=== PATIENT | female | born 1945 | race Caucasian/White ===

== ENCOUNTER 2019-06-09 15:39 | Inpatient (IN) | payer MEDICARE, SELFPAY ==
[2019-06-15] VITALS (10 sets, daily range): BP systolic 98–128; BP diastolic 49–72; PULSE 54–88; RESP 16–26; TEMP 36.5–36.8; O2SAT 90–97
[2019-06-15] MEDS: acetaminophen 325 mg Tablet 650 MG PO ×2 (02:00→23:16)
[2019-06-15 04:59] LABS: Add RBC Morph No
[2019-06-15 05:05] LABS: Basophils % 0.2 %; Eosinophils % 0.5 %; Hematocrit 29.7 % (37.0-47.0); Hemoglobin 8.2 g/dL (11.5-15.3); Lymphocytes # 0.5 10^3/uL (0.8-4.8); Lymphocytes % 5.9 %; Mean Corpuscular HGB Conc 27.6 g/dL (30.0-36.0); Mean Corpuscular Hemoglobin 20.6 pg (28.0-34.0); Mean Corpuscular Volume 74.6 fL (81-99); Mean Platelet Volume 9.3 fL (7.4-10.4); Monocytes # 0.6 10^3/uL (0.2-0.9); Monocytes % 6.8 %; Neutrophils # 7.1 10^3/uL (1.8-7.7); Nucleated Red Blood Cells # 0.1 /100WBC; Nucleated Red Blood Cells % 0.6 %; Platelet Count 239 10^3/cmm (130-400); Red Blood Count 3.98 10^6/uL (4.1-5.3); Red Cell Distribution Width 19.1 % (12.1-15.1); White Blood Count 8.2 10^3/uL (4.0-10.0)
[2019-06-15 05:33] LABS: Alanine Aminotransferase 164 U/L (0-33); Albumin Level 4.1 g/dL (3.5-5.2); Alkaline Phosphatase 224 IU/L (35-105); Anion Gap 14.3 (5-19); Aspartate Amino Transferase 72 U/L (0-32); Blood Urea Nitrogen 67 mg/dL (8-23); Calcium 9.2 mg/Dl (8.8-10.2); Carbon Dioxide 34 mmol/L (22-29); Chloride 88 mmol/L (98-107); Globulin 1.7 g/dL (1.3-4.6); Glucose 197 mg/dL (74-106); Potassium 3.3 mmol/L (3.5-5.1); Sodium 133 mmol/L (136-145); Total Bilirubin 1.2 mg/dL (0.15-1.2); Total Protein 5.8 g/dL (6.6-8.7)
--- NOTE | 2019-06-15 05:45 | PC.PHAR ---
RENAL DOSING FOR LEVAQUIN 750MG CHANGED FROM Q24H TO Q28H DUE TO CRCL OF 29.22
[2019-06-15] MEDS: pantoprazole DR 40 mg Tablet PO (09:24)
[2019-06-15] MEDS: dilTIAZem ER (24HR) 180 mg Capsule 360 MG PO (09:24)
[2019-06-15] MEDS: amiodarone 200 mg Tablet PO (09:24)
[2019-06-15] MEDS: metoprolol tartrate 25 mg Tablet PO (09:24)
[2019-06-15] MEDS: bumetanide 1 mg Tablet PO ×2 (09:24→18:11)
[2019-06-15] MEDS: aspirin 81 mg EC Tablet PO (09:25)
[2019-06-15] MEDS: apixaban 5 mg Tablet PO ×2 (09:25→18:11)
[2019-06-15] MEDS: sennosides 8.6 mg Tablet PO (09:25)
[2019-06-15 12:31] LABS: Glucose Point of Care 242 mg/dL (70-110)
--- NOTE | 2019-06-15 12:53 | PC.CHAP ---
Pastoral Care Encounter/Spiritual Assessment Type of Contact [] Declined tax evaluator visit [] Patient/Family/Request visit [] Outpatient visit [] Follow-up visit [] Physician referral [] Code/Alert [x] Routine visit [] Staff referral [] Actively dying [] Patient sleeping [] Family support [] [] Out of room [] Palliative care [] [] Receiving care in room [] Pre-surgical visit [] Trauma [x] Long length of stay [] ICU visit [] Other: Relational/Emotional Strength [x] Patient feels connected with others/family/visitors/staff [] Distress [] Loneliness/isolation [] Abandonment Spirituality of Patient [] Person of Radha [] Attends Lutheran of their Radha [x] Believes in Prayer [] Reads Bible or Jain materials [] There are Spiritual issues to be addressed 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 Interventions [x] Prayer [x] Active listening [x] Non-anxious presence [x] Spiritual/emotional support [] Crisis/trauma care [] Spiritual counseling [] Bereavement support [] Provided bereavement packet [] Provided Bible/devotional materials [] Provided toy/stuffed animal, coloring book to patient or family member [] Completed spiritual assessment [] Provided Communion [] Anointing/[place] [] Salvation [] Other: Impact on Illness or Injury [] Angry [] Fearful [] Anxious [] Often cries [] Exhaustion [] Unable to work [] Unable to attend jainism [] Unable to walk/stand [] Unable to read [] Unable to drive [] Unable to eat/drink [] Unable to sleep [] Unable to be with family [x] Other: daughters visit daily.. 6 day stay, now addressing feet level- feels progress is being made Summary Time spent with patient 10 minutes
[2019-06-15] MEDS: ondansetron 2 mg/ML SDV 2 mL 4 MG IVP (15:27)
[2019-06-15 17:34] LABS: Glucose Point of Care 200 mg/dL (70-110)
--- NOTE | 2019-06-15 18:07 | PM.PN ---
Subjective Subjective: Interval history: The mouth is feeling dry, getting some intermittent muscle cramps in her legs. Vitals/I&O/Wt Last Vital Signs Temp 97.7 F 06/15/19 17:26 Pulse 56 L 06/15/19 17:26 Resp 26 H 06/15/19 17:26 BP 105/72 06/15/19 17:26 Pulse Ox 91 06/15/19 17:26 06/15/19 06/15/19 06/15/19 06:59 14:59 22:59 Intake Total 120 / 120 Output Total 1150 / 1150 Balance -1030 / -1030 Weight last 48 hrs Weight 101.605 kg Physical Exam Const: COMMON NORMALS: no apparent distress HENMT: COMMON NORMALS: oropharynx normal Neck/C-Spine: GENERAL: Yes JVD Resp: COMMON NORMALS: normal respiratory effort and clear to auscultation bilaterally AUSCULTATION: clear to auscultation bilaterally Cardio: COMMON NORMALS: regular rhythm, S1 normal heart sound, S2 normal heart sound and no murmurs RHYTHM: regular rhythm HEART SOUNDS: S1 normal and S2 normal GI: COMMON NORMALS: normal to inspection, nondistended, normoactive bowel sounds, soft to palpation and non-tender PALPATION: Yes soft Extremity: COMMON NORMALS: no joint enlargement GENERAL: Yes edema (Bilateral edema, 3+) Skin: LESIONS: lesion noted (Large shallow ulcerations on posterior left calf) Data Labs: Other Labs: All Labs last 24 hrs except CBC/BMP 06/14/19 06/14/19 06/15/19 16:42 20:51 04:27 RBC 3.98 L MCV 74.6 L MCH 20.6 L MCHC 27.6 L RDW 19.1 H MPV 9.3 Neut % (Auto) 86.0 Lymph % (Auto) 5.9 [place] % (Auto) 6.8 Eos % (Auto) 0.5 Baso % (Auto) 0.2 Neut # (Auto) 7.1 Lymph # (Auto) 0.5 L [place] # (Auto) 0.6 Eos # (Auto) 0.0 Baso # (Auto) 0.0 Nucleated RBC % (a uto) 0.6 Nucleated RBCs # 0.1 POC Glucose 166 H 201 H Calcium Total Bilirubin AST ALT Alkaline Phosphata se Total Protein Albumin Globulin 06/15/19 06/15/19 06/15/19 04:27 11:49 17:26 RBC MCV MCH MCHC RDW MPV Neut % (Auto) Lymph % (Auto) [place] % (Auto) Eos % (Auto) Baso % (Auto) Neut # (Auto) Lymph # (Auto) [place] # (Auto) Eos # (Auto) Baso # (Auto) Nucleated RBC % (a uto) Nucleated RBCs # POC Glucose 242 200 Calcium 9.2 Total Bilirubin 1.2 AST 72 H ALT 164 H Alkaline Phosphata se 224 H Total Protein 5.8 L Albumin 4.1 Globulin 1.7 A&P Assessment and plan (1) Acute diastolic CHF (congestive heart failure): So far has been putting out urine with albumin and Bumex. Fluid restriction was decreased to 800 mL. Renal function today with some improvement. Tonight blood pressure is soft. We will give her 25 g of 25% albumin this evening and give an additional milligram of Bumex. Reduce metoprolol dose to 12.5 mg. Today complaining of some lower extremity cramps. Will check magnesium. Status: Acute Code(s): I50.31 - Acute diastolic (congestive) heart failure (2) Acute kidney injury superimposed on chronic kidney disease: Creatinine today is better. Repeat albumin tonight. Diuresis. Avoid hypotension. Status: Acute Code(s): N17.9 - Acute kidney failure, unspecified; N18.9 - Chronic kidney disease, unspecified (3) Atrial fibrillation with RVR: Resolved. She has been in sinus rhythm. Currently somewhat bradycardic in the high 50s. Will use metoprolol dose to 12.5 mg. Status: Acute Code(s): I48.91 - Unspecified atrial fibrillation (4) Pleural effusion, right: Has not been on Eliquis during this admission. Underwent thoracentesis with removal of 1100 of serous orange appearing fluid. Appears to be transudate of. Follow-up biochemistries. Continue management of congestive heart failure. With some chest pain after procedure. Possible degree of pneumonitis or reexpansion pulmonary edema. She still requiring 4 L of oxygen by nasal cannula. Continue diuresis as tolerating. Switched her antibiotic to Levaquin. Leukocytosis now resolved. Status: Acute Code(s): J90 - Pleural effusion, not elsewhere classified (5) Acute and chronic respiratory failure: Continue him on 4-5 L by nasal cannula. At home uses 2 L. Continue treatment of HF. Has underlying COPD, Patricio hypertension. Status: Acute Code(s): J96.20 - Acute and chronic respiratory failure, unspecified whether with hypoxia or hypercapnia (6) UTI (urinary tract infection): Continue Levaquin. Status: Acute Code(s): N39.0 - Urinary tract infection, site not specified (7) Constipation: Continue bowel regimen. Status: Acute Code(s): K59.00 - Constipation, unspecified Additional A&P Information Additional A&P Information: History of DVT and PE. Status post IVC filter placement which is due to be removed within the next couple months. Continue Eliquis. Attestations Medical Necessity Statement*: Continue admission for assessment and management of acute exacerbation of diastolic CHF, acute respiratory failure, with acute kidney injury, multiple comorbidities. 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
[2019-06-15] MEDS: metoprolol tartrate 25 mg Tablet 12.5 MG PO (18:11)
[2019-06-15 20:47] LABS: Glucose Point of Care 422 mg/dL (70-110)
[2019-06-15] MEDS: atorvastatin 40 mg Tablet 20 MG PO (21:31)
[2019-06-15] MEDS: budesonide 0.5 mg/2 mL Neb INHALATION (23:27)
[2019-06-15] MEDS: ipratropium-albuterol 3 mL Neb INHALATION (23:27)
[2019-06-16] VITALS (12 sets, daily range): BP systolic 93–128; BP diastolic 52–69; PULSE 56–82; RESP 16–31; TEMP 36.4–36.8; O2SAT 88–94
[2019-06-16] MEDS: ipratropium-albuterol 3 mL Neb INHALATION (03:11)
[2019-06-16 04:11] LABS: Basophils % 0.2 %; Eosinophils % 0.1 %; Hematocrit 29.4 % (37.0-47.0); Hemoglobin 8.2 g/dL (11.5-15.3); Lymphocytes # 0.5 10^3/uL (0.8-4.8); Lymphocytes % 5.3 %; Mean Corpuscular HGB Conc 27.9 g/dL (30.0-36.0); Mean Corpuscular Volume 71.9 fL (81-99); Mean Platelet Volume 9.6 fL (7.4-10.4); Monocytes # 0.9 10^3/uL (0.2-0.9); Monocytes % 10.3 %; Neutrophils # 7.1 10^3/uL (1.8-7.7); Neutrophils % 83.6 %; Nucleated Red Blood Cells # 0.1 /100WBC; Nucleated Red Blood Cells % 1.7 %; Platelet Count 259 10^3/cmm (130-400); Red Blood Count 4.09 10^6/uL (4.1-5.3); Red Cell Distribution Width 19.2 % (12.1-15.1); White Blood Count 8.5 10^3/uL (4.0-10.0)
[2019-06-16 04:22] LABS: Add RBC Morph No
[2019-06-16 04:32] LABS: Alanine Aminotransferase 137 U/L (0-33); Albumin Level 4.5 g/dL (3.5-5.2); Alkaline Phosphatase 294 IU/L (35-105); Anion Gap 16.7 (5-19); Aspartate Amino Transferase 71 U/L (0-32); Blood Urea Nitrogen 74 mg/dL (8-23); Calcium 9.4 mg/Dl (8.8-10.2); Carbon Dioxide 33 mmol/L (22-29); Chloride 87 mmol/L (98-107); Globulin 1.6 g/dL (1.3-4.6); Glucose 51 mg/dL (74-106); Potassium 3.7 mmol/L (3.5-5.1); Sodium 133 mmol/L (136-145); Total Bilirubin 1.6 mg/dL (0.15-1.2); Total Protein 6.1 g/dL (6.6-8.7)
[2019-06-16 07:30] LABS: Glucose Point of Care 80 mg/dL (70-110)
[2019-06-16] MEDS: budesonide 0.5 mg/2 mL Neb INHALATION ×2 (10:18→19:51)
[2019-06-16 11:22] LABS: Glucose Point of Care 176 mg/dL (70-110)
[2019-06-16] MEDS: apixaban 5 mg Tablet PO ×2 (12:20→18:37)
[2019-06-16] MEDS: aspirin 81 mg EC Tablet PO (12:20)
[2019-06-16] MEDS: metoprolol tartrate 25 mg Tablet 12.5 MG PO ×2 (12:20→18:37)
[2019-06-16] MEDS: bumetanide 1 mg Tablet PO (12:21)
[2019-06-16] MEDS: dilTIAZem ER (24HR) 180 mg Capsule 360 MG PO (12:21)
[2019-06-16] MEDS: pantoprazole DR 40 mg Tablet PO (12:21)
[2019-06-16] MEDS: levoFLOXacin 750 mg Tablet PO (12:22)
[2019-06-16] MEDS: amiodarone 200 mg Tablet PO (12:22)
[2019-06-16] MEDS: sennosides 8.6 mg Tablet PO (12:22)
[2019-06-16] MEDS: acetaminophen 325 mg Tablet 650 MG PO ×2 (12:27→22:03)
--- NOTE | 2019-06-16 13:05 | PC.SOCIAL ---
IMM Updated Page 2 of IMM updated and given to patient. Initialed, dated, and timed and placed back in chart.
[2019-06-16 13:45] LABS: Creatine Phosphokinase 16 U/L (26-192); Magnesium 2.3 mg/dL (1.7-2.3)
[2019-06-16 16:27] LABS: Glucose Point of Care 203 mg/dL (70-110)
--- NOTE | 2019-06-16 17:36 | PM.PN ---
Subjective Subjective: Interval history: Today she is feeling about the same. Having some muscle cramps overnight. Vitals/I&O/Wt Last Vital Signs Temp 97.6 F 06/16/19 15:44 Pulse 60 06/16/19 15:44 Resp 24 H 06/16/19 15:44 BP 93/52 06/16/19 15:44 Pulse Ox 91 06/16/19 15:44 06/16/19 06/16/19 06/16/19 06:59 14:59 22:59 Intake Total 240 / 440 240 / 240 Output Total 350 / 850 500 / 500 Balance -110 / -410 -260 / -260 Weight last 48 hrs Weight 110.677 kg Weight 101.605 kg Physical Exam Const: COMMON NORMALS: no apparent distress HENMT: COMMON NORMALS: oropharynx normal Neck/C-Spine: GENERAL: Yes JVD Resp: COMMON NORMALS: normal respiratory effort and clear to auscultation bilaterally AUSCULTATION: clear to auscultation bilaterally Cardio: COMMON NORMALS: regular rhythm, S1 normal heart sound, S2 normal heart sound and no murmurs RHYTHM: regular rhythm HEART SOUNDS: S1 normal and S2 normal GI: COMMON NORMALS: normal to inspection, nondistended, normoactive bowel sounds, soft to palpation and non-tender PALPATION: Yes soft Extremity: COMMON NORMALS: no joint enlargement GENERAL: Yes edema (Bilateral edema, 3+) Skin: LESIONS: lesion noted (Large shallow ulcerations on posterior left calf) OTHER: Small amount of weeping. A&P Assessment and plan (1) Acute diastolic CHF (congestive heart failure): Yesterday she has without less urine. Renal function worsened somewhat with creatinine up to 2.4. Blood pressure was good in the morning, this afternoon blood pressure soft. Will repeat 25 g of 25% albumin. Hold off on additional diuretics this evening. Requested cardiology consultation to assist with management of right heart failure in the setting of severe emphysema, likely severe pulmonary hypertension. Continue fluid restriction of 800 mL. Due to bradycardia, soft blood pressures metoprolol dose was decreased to 12.5 mg. Magnesium is normal. Status: Acute Code(s): I50.31 - Acute diastolic (congestive) heart failure (2) Acute kidney injury superimposed on chronic kidney disease: Hold off additional diuretic tonight. Repeat albumin. Reassess renal function. Status: Acute Code(s): N17.9 - Acute kidney failure, unspecified; N18.9 - Chronic kidney disease, unspecified (3) Atrial fibrillation with RVR: Resolved. She has been in sinus rhythm. Due to bradycardia on 06/15 metoprolol decreased to 12.5 mg. Status: Acute Code(s): I48.91 - Unspecified atrial fibrillation (4) Pleural effusion, right: Underwent thoracentesis with removal of 1100 of serous orange appearing fluid. Appears to be transudative. Follow-up biochemistries. Continue management of congestive heart failure. With some chest pain after procedure. Possible degree of pneumonitis or reexpansion pulmonary edema. She still requiring 4 L of oxygen by nasal cannula. Continue diuresis as tolerating. Levaquin. Today again with diminished lung sounds at right base. Will repeat chest x-ray. Status: Acute Code(s): J90 - Pleural effusion, not elsewhere classified (5) Acute and chronic respiratory failure: Continues on 4-5 L by nasal cannula. At home uses 2 L. Continue treatment of HF. Has underlying COPD, pulmonary hypertension. Status: Acute Code(s): J96.20 - Acute and chronic respiratory failure, unspecified whether with hypoxia or hypercapnia (6) UTI (urinary tract infection): Continue Levaquin. Status: Acute Code(s): N39.0 - Urinary tract infection, site not specified (7) Constipation: Continue bowel regimen. Status: Acute Code(s): K59.00 - Constipation, unspecified Additional A&P Information Additional A&P Information: Acute liver injury: Suspected secondary to a right heart failure. AST and ALT with mild improvement. There is some worsening of alkaline phosphatase and T bili. I suspect this may be secondary to lag. Review of prior CT abdomen pelvis did not reveal biliary pathology. She does not have right upper quadrant pain. Continue to monitor for changes in liver function and symptoms. History of DVT and PE. Status post IVC filter placement which is due to be removed within the next couple months. Continue Eliquis. Attestations Medical Necessity Statement*: Continued mission for assessment management of congestive heart failure exacerbation with right heart failure, acute kidney injury, acute liver injury. Coding Level of Care Code Acute Mathematical Technician for [facility] Diagnoses Acute diastolic CHF (congestive heart failure) I50.31 Acute kidney injury superimposed on chronic kidney disease N17.9; N18.9 Atrial fibrillation with RVR I48.91 Pleural effusion, right J90 Acute and chronic respiratory failure J96.20 UTI (urinary tract infection) N39.0 Constipation K59.00
--- NOTE | 2019-06-16 18:12 | XR_ITS ---
WS: [id number] Chest 2 views, 06/16/2019 Clinical Data: Diminished sounds R base, reassess for effusion Comparison: Orbital chest, 06/14/2019. Findings: There is a moderate right pleural effusion unchanged. There is minimal patchy opacity in th e left lower lobe which could represent minimal pneumonia. The pulmonary vascularity is not increased . No pneumothorax is seen. The upper lobes are clear. The aortic arch and descending aorta show calci fication. XR/XR chest 2V insp/exp 61006 Impression: 1. Right pleural effusion unchanged. 2. Atherosclerosis.
--- NOTE | 2019-06-16 20:12 | P.CONIM_ITS ---
Providers/Reason For Consult Consulting Physican/Specialty*: Moises Webb MD/Cardiology Reason for Consult*: Lower extremity edema/diastolic heart failure Attending Physician: Nik Ruiz Primary Care Provider: Una Rich History of Present Illness History of Present Illness Maranda Cuello is a 74 year old female Past medical history significant for severe pulmonary hypertension, history of COPD,Chronic kidney disease history of diastolic heart failure, history of chronic lower extremity edema, history of bilateral DVTs status post IVC filter admitted with worsening of shortness of breath and orthopnea, she was found to have pleural effusions underwent thor acocentesis. She was also diuresed Which worsens creatinine but overall she felt slightly better. Today we've been asked to further assist in her care as she continues to be short of breath at the baseline with lower extremity edema and worsening of Renal function. Review of Systems Const: Denies: fever or chills Eyes: Denies: change in vision Card: Denies: chest pain or palpitations Resp: Reports: shortness of breath GI: Denies: abdominal pain Musc: Denies: neck pain Neuro: Denies: headache, numbness in extremities or weakness in extremities Meds/Allergies Home Medications and Allergies Home Medications Medication Instructions Recorded Confirmed Type alprazolam [Xanax] 0.5 mg PO QID PRN 06/14/19 06/14/19 History apixaban [Eliquis] 5 mg PO BID 06/14/19 06/14/19 History aspirin 81 mg PO DAILY 06/14/19 06/14/19 History diltiazem HCl 360 mg PO DAILY 06/14/19 06/14/19 History ferrous sulfate 325 mg PO BIDWM 06/14/19 06/14/19 History furosemide [Lasix] 40 mg PO DAILY 06/14/19 06/14/19 History metformin 1,000 mg PO BIDWM 06/14/19 06/14/19 History metoprolol tartrate 25 mg PO BID 06/14/19 06/14/19 History pantoprazole [Protonix] 40 mg PO BID 06/14/19 06/14/19 History polyethylene glycol 3350 17 g PO DAILY 06/14/19 06/14/19 History potassium chloride 10 meq PO TID 06/14/19 06/14/19 History simvastatin 20 mg PO DAILY 06/14/19 06/14/19 History umeclidinium 1 inh INHALATION DAILY 06/14/19 06/14/19 History Allergies Allergy/AdvReac Type Severity Reaction Status Date / Time No Known Allergies Allergy Unverified 06/14/19 10:15 Current Medications Current Medications Generic Name Dose Route Start Last Admin Trade Name Freq PRN Reason Stop Dose Admin Acetaminophen 650 mg 06/15/19 00:00 06/16/19 12:27 Tylenol PO 650 mg Q6H PRN Administration MILD PAIN Albuterol/Ipratropium 3 ml 06/15/19 00:00 06/16/19 03:11 Duoneb INHALATION 3 ml Q6H.RESPIRATORY PRN Administration SHORTNESS OF BREATH Amiodarone HCl 200 mg 06/15/19 09:00 06/16/19 12:22 Cordarone PO 200 mg DAILY NORMA Administration Apixaban 5 mg 06/15/19 09:00 06/16/19 18:37 Eliquis PO 5 mg BID NORMA Administration Aspirin 81 mg 06/15/19 09:00 06/16/19 12:20 Aspirin Ec PO 81 mg DAILY NORMA Administration Atorvastatin Calcium 20 mg 06/15/19 21:00 06/15/19 21:31 Lipitor PO 20 mg BEDTIME NORMA Administration Budesonide 0.5 mg 06/15/19 20:00 06/16/19 19:51 Pulmicort INHALATION 0.5 mg BID.RESPIRATORY NORMA Administration Bumetanide 1 mg 06/15/19 09:00 06/16/19 12:21 Bumex PO 1 mg DAILY NORMA Administration Diltiazem HCl 360 mg 06/15/19 09:00 06/16/19 12:21 Cardizem Cd (24hr) PO 360 mg DAILY NORMA Administration Insulin Aspart 0 unit 06/15/19 21:00 06/15/19 21:39 Novolog SUBCUT 25 unit BEDTIME NORMA Administration Protocol Insulin Aspart 0 unit 06/15/19 08:00 06/16/19 18:36 Novolog SUBCUT 6 unit TIDWM NORMA Administration Protocol Levofloxacin 750 mg 06/16/19 09:00 06/16/19 12:22 Levaquin PO 750 mg Q48H NORMA Administration Metoprolol Tartrate 12.5 mg 06/15/19 18:00 06/16/19 18:37 Lopressor PO 12.5 mg BID NORMA Administration Ondansetron HCl 4 mg 06/15/19 15:14 06/15/19 15:27 Zofran IVP 4 mg Q4H PRN Administration NAUSEA AND VOMITING Pantoprazole Sodium 40 mg 06/15/19 09:00 06/16/19 12:21 Protonix PO 40 mg DAILY NORMA Administration Senna 8.6 mg 06/15/19 09:00 06/16/19 12:22 Senna Lax PO 8.6 mg DAILY NORMA Administration PFSH Acute PFSH: Statuses (acute, chronic, etc) shown below reflect problem list status as previously entered and may not be historically accurate Medical History (Updated 06/17/19 @ 10:38 by Moises Webb MD) History of cardioversion (Acute) History of GI bleed (Acute) Pulmonary hypertensive arterial disease (Acute) Surgical History (Updated 06/16/19 @ 20:26 by Moises Webb MD) History of open reduction and internal fixation (ORIF) procedure (Acute) Hx of tonsillectomy (Acute) Family History Mother Breast cancer Social History Smoking and tobacco status: former smoker Vitals/I&O/Wt Last Vital Signs Temp 97.6 F 06/16/19 15:44 Pulse 60 06/16/19 19:58 Resp 22 H 06/16/19 19:52 BP 93/52 06/16/19 15:44 Pulse Ox 91 06/16/19 19:55 06/16/19 06/16/19 06/16/19 06:59 14:59 22:59 Intake Total 240 / 440 240 / 240 240 / 480 Output Total 350 / 850 500 / 500 Balance -110 / -410 -260 / -260 240 / -20 Weight last 48 hrs Weight 244 lb Weight 224 lb Physical Exam Narrative: EXAM NARRATIVE: GENERAL: Patient is alert, awake and oriented x3. NECK: No jugular vein distension. HEENT: No cyanosis. No icterus. No pallor. HEART: Regular S1 and S2. LUNGS: Decrease breath sound on the right mid lower long.clear left lung ABDOMEN: Soft, nontender and nondistended. Positive bowel sounds. No guarding, rebound or tenderness. [] CENTRAL NERVOUS SYSTEM: Grossly nonfocal. EXTREMITIES: Lower extremities with 1+ edema bilaterally. A&P Assessment and plan (1) Acute diastolic CHF (congestive heart failure): patient appeared to be in very decompensated rather dry side of diastolic heart failure. Her main problem is worsening of pulmonary hypertension leading to right-sided heart failure. At this point I will back off and hold diuretics for 1 day. Status: Acute Code(s): I50.31 - Acute diastolic (congestive) heart failure (2) Acute kidney injury superimposed on chronic kidney disease: most likely secondary to diuresis. Patient has worsening of lower extremity edema due to worsening of right-sided failure secondary to severe pulmonary hypertension. She is volume depleted due to diuresis therefore creatinine has worsened. We will back off on diuresis. Status: Acute Code(s): N17.9 - Acute kidney failure, unspecified; N18.9 - Chronic kidney disease, unspecified (3) Pulmonary hypertensive arterial disease: patient has severe secondary pulmonary hypertension due to COPD. We recommend starting her on Rivatio. She is already on oxygen.as an outpatient she need to follow-up with pulmonary hypertension clinic. She is already on Bipap Status: Acute Code(s): I27.21 - Secondary pulmonary arterial hypertension (4) Atrial fibrillation with RVR: Rate controlled on anticoagulation, continue medicine Status: Acute Code(s): I48.91 - Unspecified atrial fibrillation Additional A&P Information Additional A&P Information: pulmonary hypertension: Patient has severe pulmonary hypertension it is the reason she has a right-sided heart failure. Due to advanced COPD history of prior pulmonary embolism/DVT and pleural effusion she does not have good long-term prognosis. We will start patient on the Revatio continue oxygen therapy. She is on BiPAP. Coding Level of Care Code Acute Resource Manager for [facility] Medical Decision Making Moderate Complexity Diagnoses Acute diastolic CHF (congestive heart failure) I50.31 Acute kidney injury superimposed on chronic kidney disease N17.9; N18.9 Pulmonary hypertensive arterial disease I27.21 Atrial fibrillation with RVR I48.91 Time Spent (min) 30
[2019-06-16 21:04] LABS: Glucose Point of Care 234 mg/dL (70-110)
--- NOTE | 2019-06-16 23:22 | PC.NURSE ---
Staff has been in room, answering patient's call light,several times thus far this shift. Patient upset over physician not ordering stronger medication for pain. He told me earlier he would. Patient agreed to take the Tylenol as ordered PRN. Patient complaining of lower back pain. Patient has been sitting on the side of the bed, sitting in the chair and lying in bed several times thus far this shift. Upset over bed not working. New bed borrowed from Med-Surg unit. Patient placed into bed. Took several attempts to get patient comfortable. Staff had to move fan over a couple of inches. Don't forget to get me some ice. Cup of ice given to patient per her request. Will monitor.
[2019-06-17] VITALS (15 sets, daily range): BP systolic 92–135; BP diastolic 51–76; PULSE 55–72; RESP 15–91; TEMP 36.4–37; O2SAT 87–94
--- NOTE | 2019-06-17 | PC.NURSE ---
EXTRUSION DIE TEMPLATE MAKER answered patient's call light and patient requesting something for nausea. I'm going to throw up. While this nurse was obtaining the Zofran to give patient, patient called again requesting something for nausea. This nurse walked into room to give patient her Zofran and patient states, You need to get me up to the bedside commode.....I think that might help. Up to [facility] with assist of 2. Tracie fritz noted. I need to sit here a while....be sure and leave my sprite so I can reach it. Sprite given to patient per her request. Call light also given to patient. Before you leave, I need those pillows against my back and head. Pillows adjusted per patient request. This nurse did explain to patient that I would give her the Zofran after she laid back down in the bed. Voices understanding. Will monitor.
[2019-06-17] MEDS: ondansetron 2 mg/ML SDV 2 mL 4 MG IVP ×2 (00:22→17:03)
--- NOTE | 2019-06-17 00:57 | PC.NURSE ---
Patient requesting another blanket. [place] given per patient request. I'm still wide awake.....I just can't sleep. This nurse explained to patient that I would relay this to oncoming shift and maybe they could get her something to help her sleep tomorrow. Voices understanding.
--- NOTE | 2019-06-17 01:37 | PC.NURSE ---
Answered patient's call light with patient complaining of not sleeping, since I've been here. This nurse reminded patient that she slept the first night I had her for a couple of hours. I know but I haven't slept the last 3 days and I really need to sleep. This nurse explained to patient that I had a call in to the doctor to see if staff could give her something for sleep. I don't know how long I can lay like this....I'm sure I'll be calling you in a bit to turn me again. This nurse turned patient on her right side after patient complained of turn/draw sheet being under her even after this nurse explained to patient why those items were placed under her. Will monitor.
--- NOTE | 2019-06-17 03:21 | PC.NURSE ---
This nurse answered patient's call light. Patient requesting Tylenol. This nurse explained to patient that she couldn't have Tylenol until 0400. Well guess I'll just have to wait then. Will monitor.
--- NOTE | 2019-06-17 03:45 | PC.NURSE ---
This nurse went into patient's room to give Tylenol. Patient lying in bed with eyes closed. Bi-pap in place due to oxygen saturation dropping to mid 80's. Will wait until patient awakens to give Tylenol. Will monitor.
[2019-06-17] MEDS: acetaminophen 325 mg Tablet 650 MG PO (05:46)
--- NOTE | 2019-06-17 05:55 | PC.NURSE ---
Answered patient's light. Oxygen re-applied at 5L/NC. States, I'll take my Tylenol now...I thought I could have it at 4 this morning. This nurse explained to patient that I had been in her room at approximately 0440 to give her Tylenol, but she was asleep and I didn't awaken her. This nurse also informed patient that I had been in the room while VS were being taken and she was still asleep so I didn't awaken her then either. Patient voices understanding. Tylenol given. Patient yawning. Think I might go back to sleep for a little while. Will monitor.
[2019-06-17] MEDS: ipratropium-albuterol 3 mL Neb INHALATION (07:28)
[2019-06-17] MEDS: budesonide 0.5 mg/2 mL Neb INHALATION ×2 (07:28→20:15)
--- NOTE | 2019-06-17 07:31 | PC.RESP ---
BIPAP ON STAND BY
[2019-06-17 07:32] LABS: Basophils % 0.1 %; Hematocrit 30.8 % (37.0-47.0); Hemoglobin 8.7 g/dL (11.5-15.3); Lymphocytes # 0.6 10^3/uL (0.8-4.8); Lymphocytes % 6.4 %; Mean Corpuscular HGB Conc 28.2 g/dL (30.0-36.0); Mean Corpuscular Hemoglobin 20.8 pg (28.0-34.0); Mean Corpuscular Volume 73.7 fL (81-99); Mean Platelet Volume 9.5 fL (7.4-10.4); Monocytes # 0.7 10^3/uL (0.2-0.9); Monocytes % 7.6 %; Neutrophils # 8.3 10^3/uL (1.8-7.7); Neutrophils % 84.9 %; Nucleated Red Blood Cells # 0.1 /100WBC; Nucleated Red Blood Cells % 1.2 %; Platelet Count 286 10^3/cmm (130-400); Red Blood Count 4.18 10^6/uL (4.1-5.3); Red Cell Distribution Width 19.8 % (12.1-15.1); White Blood Count 9.7 10^3/uL (4.0-10.0)
[2019-06-17 07:50] LABS: Alanine Aminotransferase 106 U/L (0-33); Albumin Level 4.4 g/dL (3.5-5.2); Alkaline Phosphatase 342 IU/L (35-105); Anion Gap 22.4 (5-19); Aspartate Amino Transferase 51 U/L (0-32); Calcium 9.9 mg/Dl (8.8-10.2); Carbon Dioxide 31 mmol/L (22-29); Chloride 89 mmol/L (98-107); Globulin 1.7 g/dL (1.3-4.6); Glucose 139 mg/dL (74-106); Potassium 4.4 mmol/L (3.5-5.1); Sodium 138 mmol/L (136-145); Total Bilirubin 2.1 mg/dL (0.15-1.2); Total Protein 6.1 g/dL (6.6-8.7)
[2019-06-17 07:52] LABS: Blood Urea Nitrogen 85 mg/dL (8-23)
[2019-06-17 07:58] LABS: Glucose Point of Care 159 mg/dL (70-110)
[2019-06-17] MEDS: HYDROcodone-acetaminophen 5-325 mg Tablet 1 TAB PO ×2 (09:08→20:12)
[2019-06-17] MEDS: amiodarone 200 mg Tablet PO (09:09)
[2019-06-17] MEDS: aspirin 81 mg EC Tablet PO (09:09)
[2019-06-17] MEDS: pantoprazole DR 40 mg Tablet PO (09:09)
[2019-06-17] MEDS: dilTIAZem ER (24HR) 180 mg Capsule 360 MG PO (09:09)
[2019-06-17] MEDS: sennosides 8.6 mg Tablet PO (09:09)
[2019-06-17] MEDS: metoprolol tartrate 25 mg Tablet 12.5 MG PO (09:10)
[2019-06-17] MEDS: apixaban 5 mg Tablet PO (09:10)
[2019-06-17 09:21] LABS: Magnesium 0.4 mg/dL (1.7-2.3)
[2019-06-17 11:24] LABS: Glucose Point of Care 175 mg/dL (70-110)
--- NOTE | 2019-06-17 13:08 | PC.NURSE ---
PATIENT RESTING STATES WILL EAT IN A LITTLE WHILE
--- NOTE | 2019-06-17 13:24 | P.PN_ITS ---
Subjective Subjective: Interval history: Patient states she didn't sleep well in the night. Heart rate remained under control Vitals/I&O/Wt Last Vital Signs Temp 97.6 F 06/17/19 10:54 Pulse 57 L 06/17/19 10:54 Resp 23 H 06/17/19 10:54 BP 98/52 06/17/19 10:54 Pulse Ox 91 06/17/19 10:54 06/16/19 06/17/19 06/17/19 22:59 06:59 14:59 Intake Total 480 / 720 240 / 240 Output Total 350 / 850 Balance 480 / 220 -350 / -130 240 / 240 Weight last 48 hrs Weight 231 lb 8 oz Weight 232 lb 9.6 oz Weight 244 lb Weight 224 lb Physical Exam Narrative: EXAM NARRATIVE: GENERAL: Patient is alert, awake and oriented x3. NECK: No jugular vein distension. HEENT: No cyanosis. No icterus. No pallor. HEART: Irregularly irregular, S1 and S2 LUNGS: Clear to auscultate bilaterally. ABDOMEN: Soft, nontender and nondistended. Positive bowel sounds. No guarding, rebound or tenderness. CENTRAL NERVOUS SYSTEM: Grossly nonfocal. EXTREMITIES: Lower extremities with 1+ edema bilaterally. Right leg cellulitis A&P Assessment and plan (1) Pulmonary hypertensive arterial disease: Patient has right-sided heart failure secondary to severe pulmonary hypertension. I will start patient on sildanifil 5 mg tid, advised not to take isosorbide mononitrate Status: Acute Code(s): I27.21 - Secondary pulmonary arterial hypertension (2) Atrial fibrillation with RVR: Rate controlled on Anticoagulationion continue medicine Status: Acute Code(s): I48.91 - Unspecified atrial fibrillation (3) Acute kidney injury superimposed on chronic kidney disease: Status: Acute Code(s): N17.9 - Acute kidney failure, unspecified; N18.9 - Chronic kidney disease, unspecified (4) Acute diastolic CHF (congestive heart failure): Patient is more on prior side continue to hold diuretics Status: Acute Code(s): I50.31 - Acute diastolic (congestive) heart failure Attestations Medical Necessity Statement*: Patient Requires continuation hospitalization for above defined care Coding Level of Care Code Acute Senior Visual Designer for [facility] Diagnoses Pulmonary hypertensive arterial disease I27.21 Atrial fibrillation with RVR I48.91 Acute kidney injury superimposed on chronic kidney disease N17.9; N18.9 Acute diastolic CHF (congestive heart failure) I50.31
[2019-06-17] MEDS: lanolin oint 7 gm 1 APPLIC TOPICAL (13:47)
[2019-06-17 16:40] LABS: Glucose Point of Care 242 mg/dL (70-110)
--- NOTE | 2019-06-17 18:15 | P.PN_ITS ---
Subjective Subjective: Interval history: She denies significant shortness of breath. Today she has been nauseated. Vitals/I&O/Wt Last Vital Signs Temp 97.6 F 06/17/19 10:54 Pulse 56 L 06/17/19 16:22 Resp 21 H 06/17/19 15:00 BP 92/51 06/17/19 15:00 Pulse Ox 92 06/17/19 16:22 06/17/19 06/17/19 06/17/19 06:59 14:59 22:59 Intake Total 240 / 240 Output Total 350 / 850 Balance -350 / -130 240 / 240 Weight last 48 hrs Weight 105.007 kg Weight 105.506 kg Weight 110.677 kg Weight 101.605 kg Physical Exam Const: COMMON NORMALS: no apparent distress HENMT: COMMON NORMALS: oropharynx normal Neck/C-Spine: GENERAL: Yes JVD Resp: COMMON NORMALS: normal respiratory effort and clear to auscultation bilaterally AUSCULTATION: clear to auscultation bilaterally Cardio: COMMON NORMALS: regular rhythm, S1 normal heart sound, S2 normal heart sound and no murmurs RHYTHM: regular rhythm HEART SOUNDS: S1 normal and S2 normal GI: COMMON NORMALS: normal to inspection, nondistended, normoactive bowel sounds, soft to palpation and non-tender PALPATION: Yes soft Extremity: COMMON NORMALS: no joint enlargement GENERAL: Yes edema (Bilateral edema, 3+) Skin: LESIONS: lesion noted (Large shallow ulcerations on posterior left calf) OTHER: Small amount of weeping. A&P Assessment and plan (1) Acute diastolic CHF (congestive heart failure): Renal function unfortunately worse. Creatinine up to 2.8. Urine output somewhat decreased. Today held Bumex. Appreciate cardiology assessment and recommendations. Imdur has been discontinued. She is being started on sildenafil. Continue fluid restriction of 800 mL. With suspected bowel edema causing her nausea. Due to bradycardia, soft blood pressures metoprolol dose was decreased to 12.5 mg. Appears to have reaccumulated fluid with moderate effusion on the right side. Prefer to hold off on repeat thoracentesis for now. Status: Acute Code(s): I50.31 - Acute diastolic (congestive) heart failure (2) Acute kidney injury superimposed on chronic kidney disease: Held diuretic today. Reassess renal function. Status: Acute Code(s): N17.9 - Acute kidney failure, unspecified; N18.9 - Chronic kidney disease, unspecified (3) Atrial fibrillation with RVR: Resolved. She has been in sinus rhythm. Due to bradycardia on 06/15 metoprolol decreased to 12.5 mg. Status: Acute Code(s): I48.91 - Unspecified atrial fibrillation (4) Pleural effusion, right: Underwent thoracentesis with removal of 1100 of serous orange appearing fluid. Appears to be transudative. Follow-up biochemistries. Continue management of congestive heart failure. With some chest pain after procedure. Possible degree of pneumonitis or reexpansion pulmonary edema. She still requiring 4 L of oxygen by nasal cannula. Continue diuresis as tolerating. Levaquin for suspected left lower lobe pneumonia. Moderate effusion again present on the right. Status: Acute Code(s): J90 - Pleural effusion, not elsewhere classified (5) Acute and chronic respiratory failure: Continues on 4-5 L by nasal cannula. At home uses 2 L. Continue treatment of HF. Has underlying COPD, pulmonary hypertension. Status: Acute Code(s): J96.20 - Acute and chronic respiratory failure, unspecified whether with hypoxia or hypercapnia (6) UTI (urinary tract infection): Continue Levaquin. Status: Acute Code(s): N39.0 - Urinary tract infection, site not specified (7) Constipation: Continue bowel regimen. Status: Acute Code(s): K59.00 - Constipation, unspecified Additional A&P Information Additional A&P Information: Acute liver injury: AST and ALT with improvement, alkaline phosphatase and T bili lagging behind. Review of prior CT abdomen pelvis did not reveal biliary pathology. She does not have right upper quadrant pain. Continue to monitor for changes in liver function and symptoms. History of DVT and PE. Status post IVC filter placement which is due to be removed within the next couple months. Continue Eliquis. Attestations Medical Necessity Statement*: Continue admission for assessment management of progression of congestive heart failure, acute kidney injury, in a setting of severe pulmonary hypertension, COPD, with pneumonia, UTI. Coding Level of Care Code Acute It Service Continuity Supervisor for [facility] Diagnoses Acute diastolic CHF (congestive heart failure) I50.31 Acute kidney injury superimposed on chronic kidney disease N17.9; N18.9 Atrial fibrillation with RVR I48.91 Pleural effusion, right J90 Acute and chronic respiratory failure J96.20 UTI (urinary tract infection) N39.0 Constipation K59.00
[2019-06-17] MEDS: diphenhydrAMINE 12.5 mg/5 mL UDC 10 mL PO (18:38)
[2019-06-17] MEDS: metoclopramide oral liquid 5 mg/5 mL (ml) PO (18:39)
--- NOTE | 2019-06-17 19:57 | PC.NURSE ---
When asked about Nausea patient stated her belly felt better. Patient stated she did not throw up either the Reglan or Benadryl earlier and that she just dry heaved. Patients family agreed with her. non amended IVP Benadryl for this reason.
[2019-06-17 20:22] LABS: Glucose Point of Care 209 mg/dL (70-110)
[2019-06-17] MEDS: trazodone 50 mg Tablet 25 MG PO (21:05)
[2019-06-18] VITALS (15 sets, daily range): BP systolic 93–123; BP diastolic 45–63; PULSE 56–72; RESP 20–28; TEMP 36.4–36.6; O2SAT 88–94
[2019-06-18] MEDS: diphenhydrAMINE 50 mg/mL SDV 1mL 12.5 MG IVP ×4 (01:26→20:20)
[2019-06-18 04:54] LABS: Basophils % 0.1 %; Eosinophils % 0.1 %; Hematocrit 29.5 % (37.0-47.0); Hemoglobin 8.4 g/dL (11.5-15.3); Lymphocytes # 0.8 10^3/uL (0.8-4.8); Mean Corpuscular HGB Conc 28.5 g/dL (30.0-36.0); Mean Corpuscular Volume 70.4 fL (81-99); Mean Platelet Volume 9.9 fL (7.4-10.4); Monocytes # 0.8 10^3/uL (0.2-0.9); Monocytes % 8.1 %; Neutrophils # 8.6 10^3/uL (1.8-7.7); Neutrophils % 82.8 %; Nucleated Red Blood Cells # 0.2 /100WBC; Nucleated Red Blood Cells % 1.4 %; Platelet Count 288 10^3/cmm (130-400); Red Blood Count 4.19 10^6/uL (4.1-5.3); White Blood Count 10.4 10^3/uL (4.0-10.0)
[2019-06-18 05:34] LABS: Alanine Aminotransferase 88 U/L (0-33); Albumin Level 3.9 g/dL (3.5-5.2); Alkaline Phosphatase 310 IU/L (35-105); Anion Gap 22.6 (5-19); Aspartate Amino Transferase 50 U/L (0-32); Calcium 9.7 mg/Dl (8.8-10.2); Carbon Dioxide 27 mmol/L (22-29); Chloride 86 mmol/L (98-107); Globulin 1.8 g/dL (1.3-4.6); Glucose 126 mg/dL (74-106); Potassium 4.6 mmol/L (3.5-5.1); Sodium 131 mmol/L (136-145); Total Bilirubin 2.5 mg/dL (0.15-1.2); Total Protein 5.7 g/dL (6.6-8.7)
[2019-06-18 05:41] LABS: Blood Urea Nitrogen 92 mg/dL (8-23)
[2019-06-18 08:03] LABS: Glucose Point of Care 142 mg/dL (70-110)
--- NOTE | 2019-06-18 09:27 | USR_ITS ---
PROCEDURE INFORMATION: Exam: US Abdomen Limited, Right Upper Quadrant Exam date and time: 06/18/2019 1:55 PM Age: 74 years old Clinical indication: Abnormal findings; Abnormal lab test; Elevated liver enzymes; Additional info: Hepatobiliary TECHNIQUE: Imaging protocol: Real-time ultrasound of the abdomen with image documentation. Examination was focused on the right upper quadrant. COMPARISON: US Abdomen Limited [id number] 06/10/2019 6:41 AM, chest x-ray 06/12/2019 FINDINGS: Limitations: Evaluation is limited secondary to shadowing bowel gas. Pleural space: Partially imaged right-sided pleural effusion is noted. Liver: The liver measures 14.3 cm. Gallbladder: There is a small amount of pericholecystic fluid. The gallbladder wall measures within normal limits at 2.8 mm. The gallbladder is partially distended. Small amount of echogenic sludge versus small stones are noted within the dependent portion of the gallbladder. Negative sonographic Mancuso sign. Common bile duct: Not well seen secondary to shadowing bowel gas. Pancreas: Not well seen secondary to shadowing bowel gas. Right kidney: The right kidney measures 11.0 x 6.2 x 5.1 cm. There is no evidence of hydronephrosis or shadowing echogenic renal stone. Portal venous: Bidirectional flow is noted within the portal vein. Inferior vena cava: The IVC is mildly dilated and measures 2.7 cm. Intraperitoneal space: There is a small amount of abdominal ascites. US/US abdomen limited [id number] IMPRESSION: 1. Limited exam secondary to shadowing bowel gas. There is a small amount of echogenic sludge versus small gallstones along the dependent portion of the gallbladder. There is a small amount of pericholecystic fluid. The gallbladder wall otherwise measures within normal limits and a negative sonographic Mancuso sign was obtained. Constellation of findings are equivocal for acute cholecystitis. Correlation with clinical parameters is suggested with general surgical consultation as warranted. 2. Small amount of abdominal ascites. 3. Right pleural effusion. 4. Bidirectional flow is noted within the main portal vein. Findings may be secondary to underlying hepatic dysfunction or early portal hypertension.
[2019-06-18] MEDS: amiodarone 200 mg Tablet PO (09:54)
[2019-06-18] MEDS: sennosides 8.6 mg Tablet PO (09:55)
[2019-06-18] MEDS: apixaban 5 mg Tablet PO ×2 (09:55→17:47)
[2019-06-18] MEDS: aspirin 81 mg EC Tablet PO (09:55)
[2019-06-18] MEDS: levoFLOXacin 750 mg Tablet PO (09:56)
[2019-06-18] MEDS: metoprolol tartrate 25 mg Tablet 12.5 MG PO ×2 (09:56→17:48)
[2019-06-18] MEDS: pantoprazole DR 40 mg Tablet PO (09:56)
[2019-06-18] MEDS: dilTIAZem ER (24HR) 180 mg Capsule 360 MG PO (09:57)
[2019-06-18] MEDS: HYDROcodone-acetaminophen 5-325 mg Tablet 1 TAB PO ×2 (10:03→15:54)
--- NOTE | 2019-06-18 10:32 | PC.SOCIAL ---
IMM Update Pg 2 of IMM Given and explained to patient who voiced understanding. Copy provided and chart updated.
--- NOTE | 2019-06-18 11:40 | P.PN_ITS ---
Subjective Subjective: Interval history: Maranda Cuello is a 74 year old female with PMHx of severe pulmonary hypertension (PAP> 80 mm Hg), history of chronic emphysema, former smoker, Chronic kidney disease, history of diastolic heart failure, history of chronic lower extremity edema, history of bilateral DVTs status post IVC filter presented with worsening of shortness of breath and orthopnea. She was diuresed and underwent thoracocentesis. Last 24 hours: -130 mL in last 24 hours. LOS-1.3 S: Her breathing has improved as per patient Medications: Medication Review Details: Home Medications alprazolam [Xanax] 0.5 mg PO QID PRN 06/14/19 [History Confirmed 06/14/19] apixaban [Eliquis] 5 mg PO BID 06/14/19 [History Confirmed 06/14/19] aspirin 81 mg PO DAILY 06/14/19 [History Confirmed 06/14/19] diltiazem HCl 360 mg PO DAILY 06/14/19 [History Confirmed 06/14/19] ferrous sulfate 325 mg PO BIDWM 06/14/19 [History Confirmed 06/14/19] furosemide [Lasix] 40 mg PO DAILY 06/14/19 [History Confirmed 06/14/19] metformin 1,000 mg PO BIDWM 06/14/19 [History Confirmed 06/14/19] metoprolol tartrate 25 mg PO BID 06/14/19 [History Confirmed 06/14/19] pantoprazole [Protonix] 40 mg PO BID 06/14/19 [History Confirmed 06/14/19] polyethylene glycol 3350 17 g PO DAILY 06/14/19 [History Confirmed 06/14/19] potassium chloride 10 meq PO TID 06/14/19 [History Confirmed 06/14/19] simvastatin 20 mg PO DAILY 06/14/19 [History Confirmed 06/14/19] umeclidinium 1 inh INHALATION DAILY 06/14/19 [History Confirmed 06/14/19] Active Medications Acetaminophen (Tylenol) 650 mg PO Q6H PRN PRN Reason: MILD PAIN Last Admin: 06/17/19 05:46 Dose: 650 mg Documented by: Hydrocodone Bitart/Acetaminophen (Success 5-325 Mg) 1 tab PO Q4H PRN PRN Reason: MODERATE PAIN Last Admin: 06/18/19 10:03 Dose: 1 tab Documented by: Albuterol/Ipratropium (Duoneb) 3 ml INHALATION Q6H.RESPIRATORY PRN PRN Reason: SHORTNESS OF BREATH Last Admin: 06/17/19 07:28 Dose: 3 ml Documented by: Amiodarone HCl (Cordarone) 200 mg PO DAILY COUNT INCLUDES THE [facility] Last Admin: 06/18/19 09:54 Dose: 200 mg Documented by: Apixaban (Eliquis) 5 mg PO BID COUNT INCLUDES THE [facility] Last Admin: 06/18/19 09:55 Dose: 5 mg Documented by: Aspirin (Aspirin Ec) 81 mg PO DAILY COUNT INCLUDES THE [facility] Last Admin: 06/18/19 09:55 Dose: 81 mg Documented by: Atorvastatin Calcium (Lipitor) 20 mg PO BEDTIME COUNT INCLUDES THE [facility] Last Admin: 06/15/19 21:31 Dose: 20 mg Documented by: Budesonide (Pulmicort) 0.5 mg INHALATION BID.RESPIRATORY COUNT INCLUDES THE [facility] Last Admin: 06/17/19 20:15 Dose: 0.5 mg Documented by: Bumetanide (Bumex) 1 mg PO DAILY COUNT INCLUDES THE [facility] Last Admin: 06/16/19 12:21 Dose: 1 mg Documented by: Diltiazem HCl (Cardizem Cd (24hr)) 360 mg PO DAILY COUNT INCLUDES THE [facility] Last Admin: 06/18/19 09:57 Dose: 360 mg Documented by: Diphenhydramine HCl (Benadryl) 12.5 mg IVP Q6H COUNT INCLUDES THE [facility] Last Admin: 06/18/19 12:38 Dose: 12.5 mg Documented by: Insulin Aspart (Novolog) 0 unit SUBCUT BEDTIME COUNT INCLUDES THE [facility]; Protocol Last Admin: 06/17/19 21:03 Dose: 3 unit Documented by: Insulin Aspart (Novolog) 0 unit SUBCUT TIDWM COUNT INCLUDES THE [facility]; Protocol Last Admin: 06/18/19 12:02 Dose: 6 unit Documented by: Lanolin (Lanolin Oint) 1 applic TOPICAL PRN PRN PRN Reason: DRYNESS Last Admin: 06/17/19 13:47 Dose: 1 applic Documented by: Levofloxacin (Levaquin) 750 mg PO Q48H COUNT INCLUDES THE [facility] Last Admin: 06/18/19 09:56 Dose: 750 mg Documented by: Metoclopramide HCl (Reglan) 5 mg IV Q6H PRN PRN Reason: NAUSEA AND VOMITING Metoprolol Tartrate (Lopressor) 12.5 mg PO BID COUNT INCLUDES THE [facility] Last Admin: 06/18/19 09:56 Dose: 12.5 mg Documented by: Ondansetron HCl (Zofran) 4 mg IVP Q4H PRN PRN Reason: NAUSEA AND VOMITING Last Admin: 06/17/19 17:03 Dose: 4 mg Documented by: Oxymetazoline HCl (Afrin) 2 spray NOSTRIL-B Q6H PRN PRN Reason: NASAL CONGESTION Pantoprazole Sodium (Protonix) 40 mg PO DAILY COUNT INCLUDES THE [facility] Last Admin: 06/18/19 09:56 Dose: 40 mg Documented by: Senna (Senna Lax) 8.6 mg PO DAILY COUNT INCLUDES THE [facility] Last Admin: 06/18/19 09:55 Dose: 8.6 mg Documented by: Trazodone HCl (Desyrel) 25 mg PO BEDTIME COUNT INCLUDES THE [facility] Last Admin: 06/17/19 21:05 Dose: 25 mg Documented by: Vitals/I&O/Wt Last Vital Signs Temp 97.5 F L 06/18/19 11:00 Pulse 60 06/18/19 11:00 Resp 26 H 06/18/19 11:00 BP 105/56 06/18/19 11:00 Pulse Ox 90 06/18/19 11:00 06/17/19 06/18/19 06/18/19 22:59 06:59 14:59 Intake Total 100 / 340 100 / 100 Output Total 350 / 350 Balance 100 / 340 -250 / -250 Weight last 48 hrs Weight 232 lb 14.4 oz Weight 231 lb 8 oz Weight 232 lb 9.6 oz Intake & Output 06/16/19 06/17/19 06/18/19 06/19/19 06:59 06:59 06:59 06:59 Intake Total 440 / 440 720 / 720 340 / 340 200 / 200 Output Total 850 / 850 850 / 850 350 / 350 Balance -410 / -410 -130 / -130 340 / 340 -150 / -150 Weight 224 lb 232 lb 9.6 oz 232 lb 14.4 oz Physical Exam Const: COMMON NORMALS: no apparent distress, oriented x3 and alert GENERAL APPEARANCE: cooperative, comfortable and well hydrated HENMT: COMMON NORMALS: hearing grossly normal bilaterally, external ears normal and moist oral mucous membranes FACE & SINUS: normal facial exam EXTERNAL EAR: Yes external ears normal Neck/C-Spine: COMMON NORMALS: no JVD Chest: COMMONS NORMALS: inspection of chest normal and palpation of chest normal CHEST: Yes symmetrical chest wall rise and No tenderness Resp: COMMON NORMALS: clear to auscultation bilaterally (anteriorly) EFFORT & INSPECTION: Yes able to speak in complete sentences, No tachypneic, No respiratory distress, No pursed lip breathing, No labored and No actively coughing AUSCULTATION: clear to auscultation bilaterally (anteriorly), no crackles, no rales, no rhonchi, no wheezes and breath sounds absent (right mid to basal posterior lung field) Cardio: COMMON NORMALS: no JVD, regular rate, regular rhythm, S1 normal heart sound, S2 normal heart sound and peripheral pulses 2+ throughout PALPATION: normal PMI RATE: regular rate RHYTHM: regular rhythm HEART SOUNDS: S1 normal, S2 normal, no click, no gallops and no murmurs BRUITS: no carotid bruits PERIPHERAL PULSES: pulses 2+ throughout, radial pulses present, posterior tibial pulses present and dorsalis pedis pulses present Extremity: GENERAL: No cyanosis, Yes edema (2-3+ bilateral lower extremity edema) and No pallor Neuro: COMMON NORMALS: oriented x3, CN's II-XII intact bilaterally and no focal motor deficits SENSORIUM/ORIENTATION: Yes alert Data Labs: Other Labs: Laboratory Tests 06/17/19 06/18/19 06:40 04:28 Total Bilirubin 2.1 H 2.5 H AST 51 H 50 H ALT 106 H 88 H Alkaline Phosphata se 342 H 310 H Imaging^: Echo: My impression: Normal left ventricular size and systolic function, EF 65 %. Mild concentric left internal hypertrophy.no regional wall motion abnormalities. Moderate tricuspid valve regurgitation. Moderate tricuspid with a mild to moderate mitral valve regurgitation. Severe pulmonary prevention with an estimated pulmonary artery peak systolic pressure of 86 mmHg Thickened aortic valve.trace aortic valve regurgitation. Heavy mitral annular calcification There is no pericardial effusion. There are no intracardiac masses. No previous study is available for comparison. A&P Assessment and plan (1) Pulmonary hypertensive arterial disease: Secondary pulmonary hypertension. Sildenafil 5 mg 3 times daily was ordered yesterday but that is not available in pharmacy. -She would benefit from right heart cath and initiation of pH directed therapy. Status: Acute Code(s): I27.21 - Secondary pulmonary arterial hypertension (2) Acute diastolic CHF (congestive heart failure): Bumex on hold given worsening renal function. Status: Acute Code(s): I50.31 - Acute diastolic (congestive) heart failure (3) Acute kidney injury superimposed on chronic kidney disease: Creatinine has increased to 3 today from 1.1 on admission. BUN has increased from 42-92 today. Status: Acute Code(s): N17.9 - Acute kidney failure, unspecified; N18.9 - Chronic kidney disease, unspecified (4) Atrial fibrillation with RVR: Well-controlled. Continue current medications. Status: Acute Code(s): I48.91 - Unspecified atrial fibrillation (5) Pleural effusion, right: Status: Acute Code(s): J90 - Pleural effusion, not elsewhere classified (6) Abnormal liver enzymes: Abdominal ultrasound done earlier. We will follow-up on that. Improved liver enzymes. Status: Acute Code(s): R74.8 - Abnormal levels of other serum enzymes (7) UTI (urinary tract infection): Status: Acute Code(s): N39.0 - Urinary tract infection, site not specified Coding Level of Care Code Acute Crester for [facility] Fwd Exam Problem Focused Diagnoses Pulmonary hypertensive arterial disease I27.21 Acute diastolic CHF (congestive heart failure) I50.31 Acute kidney injury superimposed on chronic kidney disease N17.9; N18.9 Atrial fibrillation with RVR I48.91 Pleural effusion, right J90 Abnormal liver enzymes R74.8 UTI (urinary tract infection) N39.0
[2019-06-18 12:00] LABS: Glucose Point of Care 218 mg/dL (70-110)
--- NOTE | 2019-06-18 13:27 | PC.RESP ---
BIPAP ID: [id number]
--- NOTE | 2019-06-18 14:40 | PM.PN ---
Subjective Subjective: Interval history: She denies any complaints with regards to her breathing. Still getting charley horse in her legs. Vitals/I&O/Wt Last Vital Signs Temp 97.6 F 06/18/19 14:24 Pulse 61 06/18/19 14:24 Resp 21 H 06/18/19 14:24 BP 93/45 06/18/19 14:24 Pulse Ox 91 06/18/19 14:24 06/17/19 06/18/19 06/18/19 22:59 06:59 14:59 Intake Total 100 / 340 200 / 200 Output Total 350 / 350 Balance 100 / 340 -150 / -150 Weight last 48 hrs Weight 105.642 kg Weight 105.007 kg Weight 105.506 kg Physical Exam Const: COMMON NORMALS: no apparent distress HENMT: COMMON NORMALS: oropharynx normal Neck/C-Spine: GENERAL: Yes JVD Resp: COMMON NORMALS: normal respiratory effort AUSCULTATION: diminished lung sounds on the right Cardio: COMMON NORMALS: regular rhythm, S1 normal heart sound, S2 normal heart sound and no murmurs RHYTHM: regular rhythm HEART SOUNDS: S1 normal and S2 normal GI: COMMON NORMALS: normal to inspection, nondistended, normoactive bowel sounds, soft to palpation and non-tender PALPATION: Yes soft Extremity: COMMON NORMALS: no joint enlargement GENERAL: Yes edema (Bilateral edema, 3+) Skin: LESIONS: lesion noted (Large shallow ulcerations on posterior left calf) OTHER: No weeping. Some wrinkling noted, although this is while her lower extremities are elevated. A&P Assessment and plan (1) Acute diastolic CHF (congestive heart failure): Diuretic was held yesterday, and will be held today as well. With worsening renal function. Creatinine up to 3. She has been maintaining fluid restriction of 800 mL/day or less. Imdur discontinued. Sildenafil was going to be started, but unavailable in the hospital. Continue fluid restriction of 800 mL. With suspected bowel edema causing her nausea. Continue pantoprazole, Zofran, Reglan as needed. Due to bradycardia, soft blood pressures metoprolol dose was decreased to 12.5 mg. Appears to have reaccumulated fluid with moderate pleural effusion on the right side. For now no respiratory complaints. Status: Acute Code(s): I50.31 - Acute diastolic (congestive) heart failure (2) Acute kidney injury superimposed on chronic kidney disease: Held diuretic yesterday and today. Appears to be pre-renal JIMENEZ. Will give 250ml of 5% albumin. Reassess renal function. Status: Acute Code(s): N17.9 - Acute kidney failure, unspecified; N18.9 - Chronic kidney disease, unspecified (3) Atrial fibrillation with RVR: Resolved. She has been in sinus rhythm. Due to bradycardia on 06/15 metoprolol decreased to 12.5 mg. Status: Acute Code(s): I48.91 - Unspecified atrial fibrillation (4) Pleural effusion, right: Underwent thoracentesis with removal of 1100 of serous orange appearing fluid. Appears to be transudative. Follow-up biochemistries. Continue management of congestive heart failure. With some chest pain after procedure. Possible degree of pneumonitis or reexpansion pulmonary edema. She still requiring 4 L of oxygen by nasal cannula. Continue diuresis as tolerating. Levaquin for suspected left lower lobe pneumonia. Moderate effusion again present on the right. Status: Acute Code(s): J90 - Pleural effusion, not elsewhere classified (5) Acute and chronic respiratory failure: Continues on 4-5 L by nasal cannula. At home uses 2 L. Continue treatment of HF. Has underlying COPD, pulmonary hypertension. Status: Acute Code(s): J96.20 - Acute and chronic respiratory failure, unspecified whether with hypoxia or hypercapnia (6) UTI (urinary tract infection): Continue Levaquin. Status: Acute Code(s): N39.0 - Urinary tract infection, site not specified (7) Constipation: Continue bowel regimen. Status: Acute Code(s): K59.00 - Constipation, unspecified Additional A&P Information Additional A&P Information: Acute liver injury: AST and ALT with improvement, alkaline phosphatase and T bili lagging behind. Review of prior CT abdomen pelvis did not reveal biliary pathology. She does not have right upper quadrant pain. Continue to monitor for changes in liver function and symptoms. Follow abdominal US results. History of DVT and PE. Status post IVC filter placement which is due to be removed within the next couple months. Continue Eliquis. Attestations Medical Necessity Statement*: Continue admission for assessment and management of congestive heart failure, acute kidney, acute liver injury. Coding Level of Care Code Acute Starch Treating Assistant for [facility] Fwd Diagnoses Acute diastolic CHF (congestive heart failure) I50.31 Acute kidney injury superimposed on chronic kidney disease N17.9; N18.9 Atrial fibrillation with RVR I48.91 Pleural effusion, right J90 Acute and chronic respiratory failure J96.20 UTI (urinary tract infection) N39.0 Constipation K59.00
[2019-06-18 15:56] LABS: Glucose Point of Care 207 mg/dL (70-110)
[2019-06-18] MEDS: albumin 12.5 GM/50 ML VIAL IV (15:58)
[2019-06-18] MEDS: ipratropium-albuterol 3 mL Neb INHALATION (20:15)
[2019-06-18] MEDS: budesonide 0.5 mg/2 mL Neb INHALATION (20:15)
[2019-06-18] MEDS: trazodone 50 mg Tablet 25 MG PO (20:21)
[2019-06-18 21:12] LABS: Glucose Point of Care 238 mg/dL (70-110)
--- NOTE | 2019-06-18 22:38 | PC.NURSE ---
Patient continues to remove CPAP, teaching provided to patient regarding CPAP and importance of keeping it on, patient pushing director instructional material light multiple times within minutes, denies pain, straightened out bedsheets, and pad on bed, call light within reach, 02 sat 86 percent, notified respiratory therapist to assist patient with CPAP and more teaching about keeping it on. Care Continued.
[2019-06-19] VITALS: BP 95/48; PULSE 60; RESP 26; TEMP 36.6; O2SAT 88
[2019-06-19] MEDS: diphenhydrAMINE 50 mg/mL SDV 1mL 12.5 MG IVP (00:30)
--- NOTE | 2019-06-19 01:20 | PC.NURSE ---
Addendum entered by Angelica Spring RN 06/19/19 03:48: Hospitalist and Emergency room doctor at the patient's bedside, family contacted regarding disposition of the patient, patient, resuscitation in progress for 20 minutes, Original Note: Was called to the patient's room, patient's heart rate declined from with bradycardia, patient blue in color and unresponsive, Code started
[2019-06-19 02:13] LABS: Basophils % 0.3 %; Eosinophils % 0.1 %; Hematocrit 30.2 % (37.0-47.0); Hemoglobin 8.3 g/dL (11.5-15.3); Lymphocytes # 3.6 10^3/uL (0.8-4.8); Lymphocytes % 25.6 %; Mean Corpuscular HGB Conc 27.5 g/dL (30.0-36.0); Mean Corpuscular Hemoglobin 19.9 pg (28.0-34.0); Mean Corpuscular Volume 72.4 fL (81-99); Mean Platelet Volume 9.9 fL (7.4-10.4); Monocytes # 0.6 10^3/uL (0.2-0.9); Monocytes % 4.2 %; Neutrophils # 9.1 10^3/uL (1.8-7.7); Neutrophils % 65.1 %; Nucleated Red Blood Cells # 2.2 /100WBC; Nucleated Red Blood Cells % 15.6 %; Platelet Count 289 10^3/cmm (130-400); Red Blood Count 4.17 10^6/uL (4.1-5.3); Red Cell Distribution Width 20.3 % (12.1-15.1)
[2019-06-19 02:13] LABS: Glucose Point of Care 128 mg/dL (70-110)
[2019-06-19 02:31] LABS: Alanine Aminotransferase 88 U/L (0-33); Albumin Level 3.7 g/dL (3.5-5.2); Alkaline Phosphatase 367 IU/L (35-105); Anion Gap 27.4 (5-19); Aspartate Amino Transferase 76 U/L (0-32); Calcium 11.8 mg/Dl (8.8-10.2); Carbon Dioxide 25 mmol/L (22-29); Chloride 84 mmol/L (98-107); Globulin 2.4 g/dL (1.3-4.6); Glucose 158 mg/dL (74-106); Potassium 5.4 mmol/L (3.5-5.1); Sodium 131 mmol/L (136-145); Total Protein 6.1 g/dL (6.6-8.7)
[2019-06-19 02:33] LABS: Troponin T (5th) Once 35 ng/mL (0-10)
[2019-06-19 02:41] LABS: Blood Urea Nitrogen 116 mg/dL (8-23); Lactic Acid 10.3 mmol/L (0.5-2.2)
[2019-06-19 02:46] LABS: Slide Review Slide Review Perform
--- NOTE | 2019-06-19 02:57 | XRR_ITS ---
PROCEDURE INFORMATION: Exam: XR Chest, 1 View Exam date and time: 06/19/2019 2:58 AM Age: 74 years old Clinical indication: Device placement; Ett placement (vent status); Additional info: Intubation TECHNIQUE: Imaging protocol: XR of the chest Views: 1 view. COMPARISON: CR XR chest 2V insp/exp [id number] 06/16/2019 7:05 PM FINDINGS: Tubes, catheters and devices: The endotracheal tube is appropriately positioned in the distal thoracic trachea with the tip above the jessica. Lungs: There is diffuse bilateral reticulonodular opacity, greatest in the central and lower lungs. Pleural space: The right lateral costophrenic sulcus is blunted. Heart/Mediastinum: The cardiac silhouette is partially obscured. The cardiac silhouette is enlarged. Bones/joints: Bones are unremarkable. XR/XR chest 1V portable [id number] IMPRESSION: 1. Satisfactory endotracheal tube position. 2. Bilateral pulmonary opacity. Probable pulmonary edema. 3. Mild cardiac enlargement. 4. Probable small right pleural effusion.
--- NOTE | 2019-06-19 03:00 | PC.NURSE ---
Transferred patient to room ICU 10, transferred, bedside report given to GIOVANNI Pope, See Code sheet in the chart.
[2019-06-19 03:15] VITALS: RESP 18
[2019-06-19] MEDS: EPINEPHrine 2.5 MG in sodium chloride 0.9% 250 ML 60.6 MG IV (03:17)
[2019-06-19] MEDS: sodium chloride 0.9% 500 ML 999 ML IV (03:17)
--- NOTE | 2019-06-19 03:34 | ECG_ITS ---
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 [email or web address]
--- NOTE | 2019-06-19 03:39 | PC.NURSE ---
Code blue called in ICU. See code record
[2019-06-19 03:55] VITALS: BP 109/62; PULSE 89
--- NOTE | 2019-06-19 04:03 | PC.NURSE ---
Dr. Graham/nurse in room discussing with family regarding patient condition and end of life decision. Family request that patient be extubated and made comfortable. Orders received.
--- NOTE | 2019-06-19 04:07 | PC.NURSE ---
Addendum entered by Pascale Trujillo RN 06/19/19 04:12: Note time to be 0300 Original Note: Received from [facility] s/p code, intubated and returned to vent. Moderate amount of ETT bleeding continues. Monitor SR to SB. SBP 70 to 80. Increased Norepi gtt to 20 mcg/min. Epi gtt remains at 10 mcg/min. 2nd 500 ml fluid bolus up and infusing. Multiple family members at bedside.
[2019-06-19] MEDS: morphine 4 mg/mL SDV 1 mL IVP (04:08)
--- NOTE | 2019-06-19 04:23 | PC.NURSE ---
Patient has cessation of respirations and heart beat. Patient is asystole on the monitor. Family at bedside. Physician notified.
--- NOTE | 2019-06-19 06:17 | PM.EVENT ---
Event Note Event Note: Last night patient was refusing to use her BiPAP she kept pulling her face mask off, after few minutes unfortunately patient had bradycardia and then PEA, CODE BLUE was called Patient had a PEA for 20 minutes, she received 6 doses of epi, 2-3 doses of bicarb and 2 dose of calcium gluconate with return of spontaneous circulation without any neurological status improvement, her pupils are fixed and dilated, lactic acid of 10 was noted without any ischemic changes on 12-lead EKG, chest x-ray did not show any signs of tension pneumothorax but it was positive for bilateral pulmonary edema with vascular congestion She was intubated by ER physician Dr. Mary, left-sided humeral IO was placed by myself, as soon as endotracheal tube was placed it was filled with blood, she had massive bleeding from endotracheal tube that was suctioned frequently, she had return of spontaneous circulation with normal sinus rhythm HR 72-80s and systolic blood pressure 170, her blood pressure started falling after 1 minute and Levophed was started at max dose and she was sent to ICU, with IV fluids, Levophed and epinephrine, her blood pressure was responsive to this regimen In ICU after 3 to 4 minutes she had another PEA after bradycardia and hypotension, at that time she was getting Levophed and epinephrine infusion along normal saline Second code ran for about 18 to 20 minutes again she received 6 doses of epinephrine with 2 doses of bicarb with 1 dose of calcium gluconate with return of spontaneous circulation at this time her rhythm was sinus heart rate was in 70s, systolic blood pressure 120, family decided to terminally extubate her and start comfort care she at 4:23 AM Event Notes Attestations Time Spent in Patient Care: 120
--- NOTE | 2019-06-19 06:58 | PC.NURSE ---
Discussion with Priyanka from [facility]. Family wishes to donate. Request to place body in morgue and not release body to home. Notified Giulia padillahouse rn of [facility] request.
--- NOTE | 2019-06-19 08:05 | PC.NURSE ---
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
--- NOTE | 2019-06-20 12:29 | P.DES_ITS ---
Discharge Providers DDS Date of Admission: 04/27/19 12:29 Date Summary Completed: 06/24/19 Attending Provider at Admission: Moises Graham Time of : 04:23 Attending Provider at Discharge: Nik Ruiz Consults: Tim Garza Primary Care Provider: Una WALKER Diagnoses Other Contributing Factors/Diagnoses Acute diastolic CHF (congestive heart failure) Acute and chronic respiratory failure Acute kidney injury superimposed on chronic kidney disease Acute liver injury Anasarca Pleural effusion, right Atrial fibrillation UTI (urinary tract infection) History of DVT and PE COPD Severe emphysema Severe pulmonary hypertension HTN DM 2 Intractable nausea Lower extremity cramps Constipation Multilevel lumbar spinal stenosis Chronic back pain Reason for Visit Reason for Visit: Reason For Visit: GI BLEED;ANEMIA;GASTRITIS;PUD Summary Date and Time of : Date of : 06/24/19 Time of : 04:23 Summary: Summary: Please note this is a Summary: Date of : 06/19/19 Time of : 4:23 74-year-old pleasant lady with history of severe pulmonary hypertension, chronic congestive heart failure with preserved ejection fraction, COPD, severe emphysema, chronically oxygen dependent on 2 L nasal cannula, on chronic anticoagulation with history of DVT and PE, IVC filter, atrial fibrillation, chronic kidney disease, HTN, DM 2, GERD, chronic back pain was admitted after presenting with shortness of breath and weight gain on 06/09, with finding of acute on chronic exacerbation of congestive heart failure with preserved ejection fraction, worsening of COPD, severe pulmonary hypertension, with signs of right heart failure with JVD distention, anasarca, right-sided moderate pleural effusion, subsequently also acute kidney and liver injury. At home she was on Lasix 40 mg twice daily, but with inadequate response, was switched to Bumex 2 mg twice a day in the hospital. Sun catheter was placed for accurate LEATHA's. Anticoagulation was held on presentation for possible thoracentesis. CTA on 06/09 excluded pulmonary embolism as trigger for right heart dec ompensation. Moderate right pleural effusion was noted. Mild anasarca consistent with right heart failure versus hypoproteinemia versus renal failure. Mild right basilar and right middle lobe atelectasis or pneumonia. Severe centrilobular emphysema. Severe calcified coronary artery disease. Mild pericardial fluid and/or thickening. Mild pericardial adenopathy which may be reactive. She was continued on oxygen support, intermittently requiring BiPAP support, initially with oxygen requirements up to 8 L by oxygen mask. Noted in atrial fibrillation on presentation for which was continued on Cardizem and metoprolol. With abnormal urinalysis, considered possibly asymptomatic pyuria/bacteriuria. Received Rocephin on presentation, Levaquin on 06/10. Appeared to be responding to Bumex with metolazone, however, with worsening renal function. Due to development of A. fib with RVR was transferred to [facility] and started on amiodarone drip on 06/11. Drip was discontinued after a bradycardic episode. She was transitioned to oral amiodarone. Oral cardizem 360mg was held. Metoprolol dose was decreased to 12.5mg. Sinus rhythm was maintained. Bumex dose had to be decreased due to soft blood pressures and worsening renal function. Subsequently decreased further to 1 mg daily and metolazone discontinued. Due to prerenal acute kidney injury received a small bolus on 06/12, subsequently did better with diuresis with daily albumin infusions with creatinine improving from peak 2.3 on 06/13 down to 1.7 on 06/15, however, after several days was noted again with worsening of renal function, a nd Bumex was held completely on 06/17 and 06/18 with intermittent albumin infusions due to suspected prerenal failure. She was maintained on fluid restriction of 800 mL/day. Continued with adequate urine output. Since Eliquis had been held since admission she underwent thoracentesis for right-sided pleural effusion with removal of 1100 of serous orange appearing fluid on 06/13, with biochemistries consistent with transudative effusion, without growth on culture. She was resumed on Eliquis due to history of DVT and PE, atrial fibrillation with elevated risk of CVA. Her hemoglobin remained stable. Due to symptoms of UTI, eventually growing Klebsiella in urine resistant to Unasyn, Bactrim and tetracycline, as well as right lower lobe possible pneumonia, versus reexpansion pulmonary edema she was restarted on Levaquin. She had persistent anasarca despite attempts at diuresis with superficial ulcerations of posterior left lower extremity intermittently weeping serous fluid which were dressed with Hydrofera Blue. She was suffering from frequent nausea with suspected bowel edema. This was not always responsive to Zofran. Appeared to respond better to Reglan and Benadryl. She was also complaining of recurrent leg cramps despite repletion of magnesium and mobilization, for which low-dose Benadryl also appeared to be helpful. She was noted to have worsening acute liver injury with rising AST, highest 159, and ALT, highest 237 on 06/14 which improved after albumin infusions, with lagging alkaline phosphatase and T bili rise up to 342 on 06/17, and 2.5 on 06/18 respectively. Prior imaging was reviewed and on CT of abdomen and pelvis from 04/27/2019 there was noted a normal gallbladder without cholelithiasis with normal liver appearance. Findings during this admission considered likely related to congestive hepatopathy. She has had no right upper quadrant pain, fever or leukocytosis. Chest x-ray was repeated with resolution of right lower lobe edema, but persistence of moderate right pleural effusion. Repeat thoracentesis was offered, however, she reported her breathing was not giving her any more trouble than usual and preferred to wait and revisit in several days. Due to congestive heart failure poorly responsive to treatment with worsening renal and liver function, persistent anasarca cardiology was consulted. Sildenafil was considered empirically due to severe pulmonary hypertension secondary to COPD worsening, leading to her right heart failure, with noted poor long-term prognosis. Imdur was discontinued. Unfortunately sildenafil is not available in the hospital. Temporary support with milrinone was considered with plan to initiate in case of lack of improvement of renal function. Right upper quadrant ultrasound was obtained for hepatobiliary assessment due to lag of liver parameters despite lack of abdominal symptoms apart from nausea. In the afternoon of 06/18 it appears she was placed on CPAP. In the evening of 06/18 noted continuously removing CPAP per nursing documentation. Later in the evening noted with acute decline in heart rate, on examination found cyanotic and unresponsive and CODE BLUE was initiated. She underwent 20 minutes of ACLS protocol resuscitation with underlying PEA rhythm. Received epinephrine, bicarbonate, calcium gluconate, 1 L of fluid boluses. ROSC was achieved but without return of alertness. Lactic acid found elevated at 10. Troponin minimally elevated at 35. No significant ischemic changes noted on EKG. Mild hyperkalemia of 5.4. Creatinine up to 3.6. Chest x-ray with pulmonary vascular congestion after fluid resuscitation. On intubation noted with blood from endotracheal tube. Unclear if due to trauma during intubation, although cannot exclude upper respiratory bleeding with aspiration possibly preceding cardiopulmonary arrest. She received frequent suctioning, noted to be in sinus rhythm heart rates in the 70s to 80s, initially maintaining blood pressure, but soon after requiring Levophed support. IV fluids and epinephrine were started en route to ICU. Very shortly after arrival in the unit suffered another episode of PEA. Underwent additional 18 to 20 minutes of ACLS resuscitation, again with return of spontaneous circulation, heart rates in the 70s, systolic blood pressure in 120s without documentation of mental status. Upon discussion of goals of care with the family decision was made for transition to comfort care. Mechanical ventilatory support was discontinued and she at 4:23 in the morning with family attendant by her bedside. Discharge Plan Discharge Prescriptions: No Action diltiazem HCl 180 mg Capsule,Extended Release 24 Hr 360 mg PO DAILY RF: 0 polyethylene glycol 3350 17 gram Powder In Packet 17 g PO DAILY RF: 0 potassium chloride 10 mEq Tablet Extended Release 10 meq PO TID RF: 0 aspirin 81 mg Tablet,Delayed Release (Dr/Ec) 81 mg PO DAILY RF: 0 alprazolam [Xanax] 0.5 mg Tablet 0.5 mg PO QID PRN (Reason: Anxiety) RF: 0 pantoprazole [Protonix] 40 mg Tablet,Delayed Release (Dr/Ec) 40 mg PO BID RF: 0 simvastatin 20 mg Tablet 20 mg PO DAILY RF: 0 ferrous sulfate 325 mg (65 mg iron) Tablet 325 mg PO BIDWM RF: 0 metformin 1,000 mg Tablet 1,000 mg PO BIDWM RF: 0 furosemide [Lasix] 20 mg Tablet 40 mg PO DAILY RF: 0 metoprolol tartrate 25 mg Tablet 25 mg PO BID RF: 0 Eliquis 5 mg Tablet 5 mg PO BID RF: 0 umeclidinium 62.5 mcg/actuation Blister With Device 1 inh INHALATION DAILY RF: 0 DS Attestations Time Spent in /Discharge Care*: greater than 30 min Quality - AMI: AMI present?: No Quality - Stroke: CVA present?: No Quality - VTE: VTE present?: No Coding Level of Care Code Acute Marketing Liaison for Ivan Salmon
== END 2019-06-19 04:25 | disposition expired | DRG 291 ==
LOC: CSU 06-17 10:03 → ICU 06-19 02:47
PROVIDERS: Admitting Provider Internal Medicine; Emergency Provider Family Medicine; Family Provider Family Medicine; PCP Family Medicine; Referring Provider Internal Medicine; Visit Provider Internal Medicine
DX: I13.0 Hypertensive heart and chronic kidney disease with heart failure and stage 1 through stage 4 chronic kidney disease, or unspecified chronic kidney disease (principal); I50.33 Acute on chronic diastolic (congestive) heart failure; J96.21 Acute and chronic respiratory failure with hypoxia; K72.00 Acute and subacute hepatic failure without coma; I48.19 Other persistent atrial fibrillation; N17.9 Acute kidney failure, unspecified; N39.0 Urinary tract infection, site not specified; J90 Pleural effusion, not elsewhere classified; R18.8 Other ascites; R04.89 Hemorrhage from other sites in respiratory passages; N18.9 Chronic kidney disease, unspecified; E11.22 Type 2 diabetes mellitus with diabetic chronic kidney disease; Z86.711 Personal history of pulmonary embolism; I27.20 Pulmonary hypertension, unspecified; Z99.81 Dependence on supplemental oxygen; Z95.828 Presence of other vascular implants and grafts; Z86.718 Personal history of other venous thrombosis and embolism; J43.9 Emphysema, unspecified; I08.1 Rheumatic disorders of both mitral and tricuspid valves; K21.9 Gastro-esophageal reflux disease without esophagitis; G89.29 Other chronic pain; M48.061 Spinal stenosis, lumbar region without neurogenic claudication; Z87.891 Personal history of nicotine dependence; K59.09 Other constipation; E86.0 Dehydration; B96.1 Klebsiella pneumoniae [K. pneumoniae] as the cause of diseases classified elsewhere; R74.8 Abnormal levels of other serum enzymes; M62.831 Muscle spasm of calf; R00.1 Bradycardia, unspecified; R11.0 Nausea; I46.9 Cardiac arrest, cause unspecified
CPT/HCPCS: 32555; 36415; 36416; 36600; 71045; 71046; 71275; 76705; 80048; 80053; 80500; 81001; 82042; 82465; 82550; 82553; 82803; 82945; 82962; 83605; 83615; 83735; 83880; 83986; 84157; 84311; 84484; 85014; 85018; 85025; 85610; 87040; 87070; 87075; 87077; 87086; 87186; 87205; 88112; 88305; 89050; 93005; 94002; 94640; 94660; 94799; 96365; 96372; 96375; 99285; J0171; J0282; J0461; J0696; J1200; J1815; J1940; J2270; J2405; J3475; J3490; J7040; J7050; J7060; J7626; P9047; Q9967